=== PATIENT | female | born 1965 | race Caucasian/White ===

== ENCOUNTER 2016-10-22 10:34 | Outpatient (CLI) | payer OTHER ==
[2016-10-22] MEDS ORDERED: NACL ONE (11:29)
--- NOTE | 2016-10-22 12:26 | Cat Scan Report ---
CT HEAD WITH AND WITHOUT CONTRAST INDICATION: Right-sided weakness. COMPARISON: None similar at this institution. FINDINGS: Pre-and post contrast head CT demonstrates symmetric, age-appropriate ventricles and sulci without acute or recent infarct, hemorrhage, mass effect or midline shift. Approximately 2.3 x 0.8 cm possible arachnoid cyst versus asymmetric physiologic right middle cranial fossa CSF space prominence about the temporal lobe tip anteriorly as on axial image 13, series 2. Slight, benign left basal ganglia calcifications. Posterior fossa structures and basilar cisterns appear within normal limits. No focal suspicious abnormal enhancement. Slight rightward nasal septal bowing. Mild bilateral ethmoid sinusitis, more so posteriorly. Right sphenoid sinus mucosal thickening anteriorly also seen. Slight right maxillary sinus mucosal thickening as well. Clear remainder imaged paranasal sinuses and mastoid air cells. Partially empty sella. Intact calvarium. Normal overlying scalp soft tissues. Radiopaque dental material anteriorly incidentally noted. CONCLUSION: No acute intracranial CT abnormality with various incidental findings, as described. Please correlate. Thank you for the opportunity to participate in this patient's care.
[2016-10-22 12:46] LABS: Basophils % (Auto) 0.3 % (0.0-1.8); Eosinophils % (Auto) 0.3 % (0.0-4.3); Hematocrit 36.9 % (30.3-42.9); Mean Corpuscular HGB Conc 33 % (30-34); Mean Corpuscular Hemoglobin 26 pg (28-32); Mean Corpuscular Volume 81 fl (79-97); Platelet Count 195 K/mm3 (140-440); Red Blood Count 4.56 M/mm3 (3.65-5.03); Red Cell Distribution Width 14.7 % (13.2-15.2); White Blood Count 4.1 K/mm3 (4.5-11.0)
[2016-10-22 13:07] LABS: Alanine Aminotransferase 17 units/L (7-56); Albumin 4.5 g/dL (3.9-5); Albumin/Globulin Ratio 1.1 %; Alkaline Phosphatase 70 units/L (35-129); Anion Gap 19 mmol/L; Blood Urea Nitrogen 9 mg/dL (7-17); Calcium 9.3 mg/dL (8.4-10.2); Carbon Dioxide 24 mmol/L (22-30); Chloride 98.9 mmol/L (98-107); Glucose 80 mg/dL (65-100); Potassium 4.3 mmol/L (3.6-5.0); Sodium 138 mmol/L (137-145); Total Protein 8.7 g/dL (6.3-8.2)
[2016-10-22 13:15] LABS: Erythrocyte Sedimentation Rate 48 mm/Hr (0-20)
== END 2016-10-22 10:35 | disposition home or self-care (01) ==
LOC: CT 10:34
DX: I10 Essential (primary) hypertension (principal); G81.93 Hemiplegia, unspecified affecting right nondominant side; L93.0 Discoid lupus erythematosus; G93.89 Other specified disorders of brain; J34.2 Deviated nasal septum; J32.2 Chronic ethmoidal sinusitis
CPT/HCPCS: 36415; 70470; 80053; 84439; 84443; 85025; 85652; 86038; 86618; Q9967